=== PATIENT | male | born 1985 | race Hispanic/Latino ===

== ENCOUNTER 2020-06-02 23:50 | Inpatient (IN) | payer BC ==
[~2020-06-02] VITALS: Ht 177.8 cm; Wt 93.2 kg
[2020-06-03 00:08] LABS: ABG OXYGEN SATURATION 27.2 % (95.0-99.0); BASE EXCESS,VENOUS BLOOD GAS -1.7 (-2.0-3.0); HCO3,VENOUS BLOOD GAS 23.9 (21.0-28.0); PCO2,VENOUS BLOOD GAS 44 (35-48); PH,VENOUS BLOOD GAS 7.357 (7.350-7.450)
[2020-06-03 00:33] LABS: APPEARANCE,URINE Cloudy (CLEAR); BILIRUBIN,URINE Negative (NEGATIVE); COLOR,URINE Yellow (YELLOW); GLUCOSE, URINE (UA) Negative (NEGATIVE); KETONES,URINE Negative (NEGATIVE); LEUKOCYTE ESTERASE ,URINE Small (NEGATIVE); NITRATE,URINE Positive (NEGATIVE); OCCULT BLOOD,URINE Negative (NEGATIVE); PH,URINE 8.5 (5.0-8.0); PROTEIN,URINE Trace mg/dL (NEGATIVE)
[2020-06-03 00:39] LABS: BASOPHILS % (AUTO) 0.3 % (0.0-5.0); EOSINOPHILS % (AUTO) 0.7 % (0.0-8.0); HEMATOCRIT 42.1 % (42-54); LYMPHOCYTES % (AUTO) 40.4 % (21.0-51.0); MEAN CORPUSCULAR HEMOGLOBIN 30.9 pg (27.0-33.0); MEAN CORPUSCULAR HGB CONC 34.7 g/dL (32.0-36.0); MONOCYTES % (AUTO) 10.1 % (3.0-13.0); NEUTROPHILS % (AUTO) 47.8 % (40.0-77.0); PLATELET COUNT (AUTO) 257 K/uL (130-400); RED BLOOD CELL COUNT(AUTO) 4.73 MIL/uL (4.50-6.20); RED CELL DISTRIBUTION WIDTH 11.9 % (11.0-15.5); WHITE BLOOD COUNT (AUTO) 6.8 K/uL (4.8-10.8)
[2020-06-03 00:41] LABS: AMPHET/METH SCREEN,URINE NEGATIVE (NEGATIVE); BARBITURATE SCREEN, URINE NEGATIVE (NEGATIVE); BENZODIAZEPINES SCREEN,URINE NEGATIVE (NEGATIVE); CANNABINOID SCREEN,URINE NEGATIVE (NEGATIVE); COCAINE SCREEN,URINE NEGATIVE (NEGATIVE); OPIATE SCREEN,URINE NEGATIVE (NEGATIVE); PHENCYCLIDINE SCREEN,URINE NEGATIVE (NEGATIVE)
[2020-06-03 00:48] LABS: CARBON DIOXIDE 27 mmol/L (21-32); CHLORIDE 105 mmol/L (101-111); CREATININE 0.8 mg/dL (0.5-1.5); GLOMERULAR FILTR. RATE CALC 118 mL/min (>60); GLUCOSE,RANDOM 88 mg/dL (70-105); INR 1.03 (0.85-1.15); PARTIAL THROMBOPLASTIN TIME 24.7 SEC (26.3-35.5); POTASSIUM 4.3 mmol/L (3.5-5.1); PROTHROMBIN TIME 11.1 SEC (9.6-11.6); SODIUM SERUM 139 mmol/L (136-145); UREA NITROGEN, BLOOD 10 mg/dL (7-18)
[2020-06-03 00:51] LABS: RBC,URINE None Seen /HPF (0-1)
[2020-06-03 00:52] LABS: BACTERIA,URINE Many /HPF (None Seen)
[2020-06-03 00:55] LABS: ALANINE AMINOTRANSFERASE 184 U/L (12-78); ALBUMIN 4.3 g/dL (3.5-5.0); ASPARTATE AMINOTRANSFERASE 55 U/L (10-37); BILIRUBIN,TOTAL 0.8 mg/dL (0.2-1.0); CREATINE KINASE, TOTAL 98 U/L (21-232); LIPASE 145 U/L (114-286); TOTAL PROTEIN, SERUM 8.9 g/dL (6.0-8.3)
[2020-06-03 01:10] LABS: ACETAMINOPHEN < 1 mcg/mL (10-29); ALCOHOL, BLOOD < 3 mg/dL (0-10); SALICYLATE < 2.8 mg/dL (2.8-20.0)
[2020-06-03] MEDS: CEFTRIAXONE SODIUM 1 GM IV SCH (03:30)
[2020-06-03] MEDS ORDERED: ONDANSETRON HCL 4 MG/2 ML VIAL IV PRN (03:30)
[2020-06-03] MEDS ORDERED: ACETAMINOPHEN 325 MG TAB PO PRN (03:30)
[2020-06-03] MEDS ORDERED: CEFTRIAXONE SODIUM 1 GM ONE (04:02)
[2020-06-03 04:30] VITALS: BP 122/80
--- NOTE | 2020-06-03 04:30 | NUR ---
Admission Assessment Received pt from ED, DX: Seizure per stretcher, reported by ED nurse Reilly RN stated that pt had received total of 4mg Ativan by EMS for new onset seizure, as pt currently very drowsy barely able to respond verbally to what's his name, follows simple command & falls back to sleep. Unable to complete admission data base at this time, although per Reilly reported pt has no medical/surgical history, no home medications per information obtain from pt's sister Jacqueline # [phone]. Pt currently denies pain/discomfort.
[2020-06-03 08:46] VITALS: BP 114/75
[2020-06-03] MEDS ORDERED: LORAZEPAM 2 MG/ML 1 ML VIAL IVP PRN (09:15)
[2020-06-03 10:50] LABS: PHOSPHORUS 3.9 mg/dL (2.5-4.9); THYROID STIMULATING HORMONE 0.89 uIU/mL (0.36-3.74)
[2020-06-03 11:49] VITALS: BP 138/85
[2020-06-03] MEDS ORDERED: HYDROXYZINE HCL 25 MG TABLET PO PRN (12:45)
--- NOTE | 2020-06-03 14:51 | NUR ---
cm note pt resides at home alone, independent with adls and ambulation. no dme. no home services. dc plan is back to home at time of dc. sister Yumiko Pizarro is contact [phone]. Addendum: 06/03/20 at 1457 by BRET SINGH Amended: Links added.
[2020-06-03] MEDS: ACETAMINOPHEN 325 MG TAB PO PRN (15:53)
--- NOTE | 2020-06-03 18:53 | NUR ---
SPOKE WITH DR. BARCENAS ABOUT NEW CONSULT. AWAITING ECHO RESULTS.
[2020-06-03 19:19] VITALS: BP 118/82
--- NOTE | 2020-06-03 19:40 | NUR ---
RAPID COVID TEST (-), COVID PCR TEST DONE, BUT STILL PENDING RESULTS. Addendum: 06/03/20 at 2315 by ANATOLY COOLEY RN RN Amended: Links added.
[2020-06-03 20:24] VITALS: BP 133/87
[2020-06-03 23:40] VITALS: BP 130/87
[2020-06-04] MEDS: CEFTRIAXONE SODIUM 1 GM IV SCH (03:22)
[2020-06-04 03:26] VITALS: BP 118/66
[2020-06-04 07:14] LABS: BASOPHILS % (AUTO) 0.3 % (0.0-5.0); EOSINOPHILS % (AUTO) 1.2 % (0.0-8.0); HEMATOCRIT 43.1 % (42-54); MEAN CORPUSCULAR HEMOGLOBIN 30.6 pg (27.0-33.0); MEAN CORPUSCULAR HGB CONC 34.8 g/dL (32.0-36.0); MONOCYTES % (AUTO) 8.8 % (3.0-13.0); NEUTROPHILS % (AUTO) 50.9 % (40.0-77.0); PLATELET COUNT (AUTO) 252 K/uL (130-400); RED CELL DISTRIBUTION WIDTH 11.9 % (11.0-15.5); WHITE BLOOD COUNT (AUTO) 5.9 K/uL (4.8-10.8)
[2020-06-04 07:28] LABS: ALBUMIN 3.9 g/dL (3.5-5.0); CREATININE 0.8 mg/dL (0.5-1.5); CRP QUANTITATIVE 4.2 mg/L (0.00-9.0); POTASSIUM 3.9 mmol/L (3.5-5.1); TOTAL PROTEIN, SERUM 8.4 g/dL (6.0-8.3)
[2020-06-04 08:00] VITALS: BP 113/77
--- NOTE | 2020-06-04 09:30 | NUR ---
DR. BONILLA IN TO SEE PT. ORDERS GIVEN AND ENTERED. PATIENT INFORMED.
--- NOTE | 2020-06-04 10:33 | NUR ---
TO RAD. DEPT. NOW FOR BRAIN MRI
--- NOTE | 2020-06-04 10:50 | NUR ---
BACK FROM RAD. DEPT.
[2020-06-04] MEDS: LEVETIRACETAM 500 MG TABLET PO SCH ×2 (11:05→20:48)
[2020-06-04 12:00] VITALS: BP 120/86
--- NOTE | 2020-06-04 12:50 | NUR ---
CALLED DR. HUTCHISON OFFICE WITH MRI OF BRAIN REPORT, LEFT MESSAGE .
--- NOTE | 2020-06-04 14:00 | NUR ---
CONSULT WITH PENDING FOR C/O OF SEVERE ANXIETY. ORDER CAME IN LATE BUT OFFICE WAS CALLED CONSULT ADDRESSED
[2020-06-04 16:00] VITALS: BP 122/75
--- NOTE | 2020-06-04 19:30 | NUR ---
RAPID COVID TEST (-), COVID PCR RESULTS STILL PENDING. Addendum: 06/04/20 at 2357 by ANATOLY COOLEY RN RN Amended: Links added.
[2020-06-04 19:58] VITALS: BP 130/86
--- NOTE | 2020-06-04 22:50 | NUR ---
PAGED DR. COOL ON-CALL FOR [facility] TO REMIND OF NEW CONSULT. PENDING CALL BACK.
[2020-06-04 23:21] VITALS: BP 124/73
[2020-06-05] MEDS: CEFTRIAXONE SODIUM 1 GM IV SCH (04:18)
[2020-06-05 04:31] VITALS: BP 115/68
[2020-06-05] MEDS: ACETAMINOPHEN 325 MG TAB PO PRN (04:34)
[2020-06-05 06:04] LABS: BASOPHILS % (AUTO) 0.3 % (0.0-5.0); EOSINOPHILS % (AUTO) 0.9 % (0.0-8.0); HEMATOCRIT 43.7 % (42-54); LYMPHOCYTES % (AUTO) 39.3 % (21.0-51.0); MEAN CORPUSCULAR HEMOGLOBIN 31.5 pg (27.0-33.0); MEAN CORPUSCULAR HGB CONC 35.9 g/dL (32.0-36.0); MEAN CORPUSCULAR VOLUME 87.8 fL (79-99); MONOCYTES % (AUTO) 8.6 % (3.0-13.0); NEUTROPHILS % (AUTO) 50.1 % (40.0-77.0); PLATELET COUNT (AUTO) 257 K/uL (130-400); RED BLOOD CELL COUNT(AUTO) 4.98 MIL/uL (4.50-6.20); RED CELL DISTRIBUTION WIDTH 11.9 % (11.0-15.5); WHITE BLOOD COUNT (AUTO) 6.4 K/uL (4.8-10.8)
[2020-06-05 06:39] LABS: BILIRUBIN,TOTAL 1.1 mg/dL (0.2-1.0); CREATININE 0.9 mg/dL (0.5-1.5); CRP QUANTITATIVE 4.6 mg/L (0.00-9.0); POTASSIUM 4.2 mmol/L (3.5-5.1); TOTAL PROTEIN, SERUM 8.5 g/dL (6.0-8.3)
[2020-06-05 08:00] VITALS: BP 110/65
[2020-06-05 10:13] LABS: HEPATITIS A ANTIBODY IGM Negative (Negative); HEPATITIS B CORE IGM Negative (Negative); HEPATITIS Bs ANTIGEN SCREEN P Negative (Negative)
[2020-06-05] MEDS: LEVETIRACETAM 500 MG TABLET PO SCH ×2 (10:23→20:00)
[2020-06-05 10:30] VITALS: BP_SYST 120; BP_SYST 123; BP_SYST 133; BP_DIAS 69; BP_DIAS 78; BP_DIAS 86
[2020-06-05] MEDS: LEVOFLOXACIN 500 MG TABLET PO SCH (13:19)
[2020-06-05 16:00] VITALS: BP 147/47
[2020-06-05 19:48] VITALS: BP 122/74
[2020-06-05] MEDS: TRAZODONE HCL 50 MG TAB PO SCH (20:00)
[2020-06-05 23:14] VITALS: BP 127/76
[2020-06-06 03:10] VITALS: BP 104/60
[2020-06-06 06:51] LABS: BASOPHILS % (AUTO) 0.3 % (0.0-5.0); EOSINOPHILS % (AUTO) 0.9 % (0.0-8.0); HEMATOCRIT 43.7 % (42-54); MEAN CORPUSCULAR HEMOGLOBIN 31.2 pg (27.0-33.0); MEAN CORPUSCULAR HGB CONC 35.7 g/dL (32.0-36.0); MEAN CORPUSCULAR VOLUME 87.4 fL (79-99); NEUTROPHILS % (AUTO) 52.9 % (40.0-77.0); PLATELET COUNT (AUTO) 264 K/uL (130-400); RED CELL DISTRIBUTION WIDTH 11.9 % (11.0-15.5); WHITE BLOOD COUNT (AUTO) 5.7 K/uL (4.8-10.8)
[2020-06-06 07:11] LABS: BILIRUBIN,TOTAL 1.1 mg/dL (0.2-1.0); CREATININE 0.8 mg/dL (0.5-1.5); CRP QUANTITATIVE 3.1 mg/L (0.00-9.0); POTASSIUM 3.9 mmol/L (3.5-5.1); TOTAL PROTEIN, SERUM 8.5 g/dL (6.0-8.3)
--- NOTE | 2020-06-06 07:50 | NUR ---
ASSESSMENT ENCOUNTERED PT A&OX3, CALM COOPERATIVE AN DOES NOT APPEAR TO BE IN ANY DISTRESS NOR ANY NEURO DEFICITS PRESENT. PT DENIES PAIN, SOB, NAUSEA. PT IS AMBULATORY, GAIT STEADY AND STRONG WITH STAND BY ASSIST. CALL LIGHT WITHIN REACH.
[2020-06-06 08:02] VITALS: BP 111/77
[2020-06-06] MEDS: LEVOFLOXACIN 500 MG TABLET PO SCH (09:14)
[2020-06-06] MEDS: LEVETIRACETAM 500 MG TABLET PO SCH ×2 (09:14→20:17)
[2020-06-06] MEDS: PAROXETINE HCL 20 MG TABLET PO SCH (09:16)
[2020-06-06] MEDS ORDERED: GADODIAMIDE 10 MMOL/20 ML VIAL IV ONE (11:02)
[2020-06-06 11:13] VITALS: BP 136/80
[2020-06-06] MEDS ORDERED: SODIUM CHLORIDE 0.9% 1000ML 1,000 ML IV SCH (11:14)
[2020-06-06 16:25] VITALS: BP 130/77
[2020-06-06 19:42] VITALS: BP 117/71
[2020-06-06] MEDS: TRAZODONE HCL 50 MG TAB PO SCH (20:17)
[2020-06-07] VITALS (17 sets, daily range): BP systolic 99–144; BP diastolic 57–87
[2020-06-07 04:40] LABS: HEMATOCRIT 43.9 % (42-54); MEAN CORPUSCULAR HGB CONC 35.3 g/dL (32.0-36.0); MEAN CORPUSCULAR VOLUME 87.8 fL (79-99); RED CELL DISTRIBUTION WIDTH 12.1 % (11.0-15.5); WHITE BLOOD COUNT (AUTO) 6.9 K/uL (4.8-10.8)
[2020-06-07 05:00] LABS: INR 1.08 (0.85-1.15); PARTIAL THROMBOPLASTIN TIME 25.1 SEC (26.3-35.5); PROTHROMBIN TIME 11.6 SEC (9.6-11.6)
[2020-06-07 05:19] LABS: CREATININE 0.8 mg/dL (0.5-1.5); POTASSIUM 4.1 mmol/L (3.5-5.1)
[2020-06-07] MEDS: LEVETIRACETAM 500 MG TABLET PO SCH (09:53)
--- NOTE | 2020-06-07 10:58 | NUR ---
ASSESSMENT ENCOUNTERED PT A&OX3, CALM COOPERATIVE AN DOES NOT APPEAR TO BE IN ANY DISTRESS NOR ANY NEURO DEFICITS PRESENT. PT DENIES PAIN, SOB, NAUSEA. PT IS AMBULATORY, GAIT STEADY AND STRONG WITH STAND BY ASSIST. PT IS NPO PENDING EP STUDY, CALL LIGHT WITHIN REACH.
[2020-06-07] MEDS ORDERED: MEPERIDINE-PF 25 MG/ML SYG ONE ×4 (11:14→13:01)
[2020-06-07] MEDS ORDERED: MIDAZOLAM HCL 1 MG/ML 2ML VIAL ONE ×4 (11:14→13:01)
[2020-06-07] MEDS ORDERED: LIDOCAINE HCL 2% 20ML ONE ×2 (11:15→11:45)
[2020-06-07] MEDS ORDERED: ISOPROTERENOL HCL 0.2 MG/ML AMP/VIAL/BAG ONE (12:58)
--- NOTE | 2020-06-07 14:30 | NUR ---
POST PROCEDURE RECEIVED PT FROM [employer] HELPER IN FLAT POSITION, A&OX3, CALM COOPERATIVE AND DOES NOT APPEAR TO BE IN ANY DISTRESS NOR ANY NEURO DEFICITS PRESENT. PT DENIES PAIN, SOB, NAUSEA. RT AND LEFT GROIN SOFT NONTENDER WITH NO OOZING OR HEMATOMA PRESENT. DP/PT PULSES PALPABLE. PT ON FLAT BEDREST FOR 4 HOURS UNTIL 1830. CALL LIGHT WITHIN REACH.
[2020-06-07] MEDS: PAROXETINE HCL 20 MG TABLET PO SCH (17:42)
[2020-06-07] MEDS: LEVOFLOXACIN 500 MG TABLET PO SCH (17:42)
[2020-06-07] MEDS: TRAZODONE HCL 50 MG TAB PO SCH (19:39)
[2020-06-07] MEDS ORDERED: TRAMADOL HCL 50 MG TABLET PO PRN (21:30)
[2020-06-08 03:44] VITALS: BP 110/69
[2020-06-08 06:20] LABS: BASOPHILS % (AUTO) 0.2 % (0.0-5.0); EOSINOPHILS % (AUTO) 0.6 % (0.0-8.0); HEMATOCRIT 43.2 % (42-54); LYMPHOCYTES % (AUTO) 34.6 % (21.0-51.0); MEAN CORPUSCULAR HEMOGLOBIN 30.8 pg (27.0-33.0); MEAN CORPUSCULAR HGB CONC 34.7 g/dL (32.0-36.0); MEAN CORPUSCULAR VOLUME 88.7 fL (79-99); MONOCYTES % (AUTO) 8.2 % (3.0-13.0); NEUTROPHILS % (AUTO) 55.9 % (40.0-77.0); PLATELET COUNT (AUTO) 224 K/uL (130-400); RED BLOOD CELL COUNT(AUTO) 4.87 MIL/uL (4.50-6.20); RED CELL DISTRIBUTION WIDTH 11.9 % (11.0-15.5); WHITE BLOOD COUNT (AUTO) 8.8 K/uL (4.8-10.8)
[2020-06-08 06:39] LABS: CREATININE 0.9 mg/dL (0.5-1.5); POTASSIUM 4.2 mmol/L (3.5-5.1)
[2020-06-08 08:00] VITALS: BP 123/73
[2020-06-08] MEDS: PAROXETINE HCL 20 MG TABLET PO SCH (10:28)
[2020-06-08] MEDS: LEVOFLOXACIN 500 MG TABLET PO SCH (10:28)
[2020-06-08 11:17] VITALS: BP 124/77
[2020-06-08] MEDS ORDERED: PARO-37 PO (16:38)
[2020-06-08] MEDS ORDERED: LEVE-43 PO (16:38)
[2020-06-08] MEDS ORDERED: LEVO500T2 PO (16:39)
[2020-06-08] MEDS ORDERED: TRAZ-185 PO (16:39)
== END 2020-06-08 17:28 | disposition home or self-care (01) | DRG 274 ==
LOC: EDH 23:50 → EDHIP 06-03 03:24 → OBSVTOIN 06-03 03:24 → 4CH 06-03 03:59
PROVIDERS: ADMIT Internal Medicine; ATTEND Internal Medicine
PROC: 4A023FZ Measurement of Cardiac Rhythm, Percutaneous Approach (ICD-10-PCS; principal; 2020-06-05)
PROC: 02583ZZ Destruction of Conduction Mechanism, Percutaneous Approach (ICD-10-PCS; 2020-06-05)
PROC: 4A0234Z Measurement of Cardiac Electrical Activity, Percutaneous Approach (ICD-10-PCS; 2020-06-05)
PROC: 02K83ZZ Map Conduction Mechanism, Percutaneous Approach (ICD-10-PCS; 2020-06-05)
DX: I49.9 Cardiac arrhythmia, unspecified (principal); N39.0 Urinary tract infection, site not specified; B17.9 Acute viral hepatitis, unspecified; G40.909 Epilepsy, unspecified, not intractable, without status epilepticus; R16.0 Hepatomegaly, not elsewhere classified; D18.03 Hemangioma of intra-abdominal structures; Z20.828 Contact with and (suspected) exposure to other viral communicable diseases; K76.0 Fatty (change of) liver, not elsewhere classified; F41.1 Generalized anxiety disorder; F32.9 Major depressive disorder, single episode, unspecified; B96.20 Unspecified Escherichia coli [E. coli] as the cause of diseases classified elsewhere; E66.9 Obesity, unspecified; Z68.29 Body mass index [BMI] 29.0-29.9, adult; Z90.49 Acquired absence of other specified parts of digestive tract; Z79.899 Other long term (current) drug therapy
CPT/HCPCS: 36415; 36600; 70450; 70551; 71045; 74183; 76705; 80048; 80053; 80074; 80305; 81001; 82140; 82550; 82728; 82803; 82948; 82977; 83605; 83615; 83690; 83735; 84100; 84145; 84443; 84484; 85025; 85027; 85378; 85610; 85730; 86140; 87077; 87088; 87186; 87426; 87486; 87797; 93005; 93306; 93356; 93613; 93621; 93623; 93653; 93975; 95816; 99156; 99157; A9579; C1730; C1732; C1894; G0378; G0481; J0696; J1644; J2175; J2250; J2405; J3490; U0003